=== PATIENT | female | born 1995 | race African-American/Black ===

== ENCOUNTER 2017-08-25 11:35 | Emergency (ER) | payer MEDICAID ==
[~2017-08-25] VITALS: Ht 170.2 cm; Wt 66.0 kg
[2017-08-25] MEDS ORDERED: IBUPROFEN 600MG TABLET PO ONE (15:15)
[2017-08-25 15:31] LABS: BASOPHILS % 0.8 % (0.0-2.0); EOSINOPHILS % 0.6 % (0.0-5.0); HEMATOCRIT. 36.8 % (36.0-48.0); HEMOGLOBIN. 12.3 g/dL (12.0-16.0); LYMPHOCYTES % 14.8 % (20.0-50.0); MEAN CORPUSCULAR HEMOGLOBIN 30.5 pg (28.0-32.0); MEAN CORPUSCULAR VOLUME 91.1 fL (81.0-99.0); MEAN PLATELET VOLUME 8.4 fl (7.4-10.4); MONOCYTES % 7.8 % (2.0-8.0); PLATELET 220 x1000/uL (130-400); RED BLOOD CELL COUNT 4.04 mill/uL (4.2-5.4); RED CELL DISTRIBUTION WIDTH 13.8 % (11.6-14.6)
[2017-08-25 16:19] LABS: CLARITY URINE CLOUDY (CLEAR); COLOR URINE YELLOW (YELLOW); KETONES URINE TRACE (NEGATIVE); LEUKOCYTE ESTERASE URINE TRACE (NEGATIVE); NITRITE URINE NEGATIVE (NEGATIVE); OCCULT BLOOD URINE 3+ (NEGATIVE); PH URINE >=9.0 (4.5-8.0); PROTEIN URINE 1+ (NEGATIVE); SPECIFIC GRAVITY URINE 1.032 (1.005-1.030)
[2017-08-25 17:09] VITALS: BP 116/63
== END 2017-08-25 17:11 | disposition home or self-care (01) ==
LOC: ER 13:30
DX: N93.8 Other specified abnormal uterine and vaginal bleeding (principal); R10.9 Unspecified abdominal pain
CPT/HCPCS: 36415; 76830; 76856; 81003; 81025; 85025; 99285; Z7610

== ENCOUNTER 2020-09-08 06:10 | Emergency (ER) | payer MEDICAID, OTHER ==
[~2020-09-08] VITALS: Ht 167.6 cm; Wt 91.0 kg
[2020-09-08] MEDS ORDERED: ONDANSETRON HCL 4MG/2ML INJ IV STA (06:31)
[2020-09-08] MEDS ORDERED: SODIUM CHLORIDE 0.9% 1,000 ML IV ONE (06:45)
[2020-09-08 08:09] LABS: BASOPHILS % 0.3 % (0.0-2.0); EOSINOPHILS % 0.6 % (0.0-5.0); HEMATOCRIT. 39.5 % (36.0-48.0); LYMPHOCYTES % 9.6 % (20.0-50.0); MEAN CORPUSCULAR HEMOGLOBIN 30.5 pg (28.0-32.0); MEAN CORPUSCULAR VOLUME 92.6 fL (81.0-99.0); MEAN PLATELET VOLUME 9.7 fl (7.4-10.4); MONOCYTES % 4.4 % (2.0-8.0); NEUTROPHILS % 85.1 % (40.0-76.0); PLATELET 205 x1000/uL (130-400); RED BLOOD CELL COUNT 4.26 mill/uL (4.2-5.4); RED CELL DISTRIBUTION WIDTH 14.5 % (11.6-14.6)
[2020-09-08] MEDS ORDERED: KETOROLAC 15MG/ML VIAL IV ONE (08:15)
[2020-09-08 08:16] LABS: CHLORIDE 108 mEq/L (98-107)
[2020-09-08 08:18] LABS: CLARITY URINE CLEAR (CLEAR); COLOR URINE YELLOW (YELLOW); KETONES URINE TRACE (NEGATIVE); LEUKOCYTE ESTERASE URINE 1+ (NEGATIVE); NITRITE URINE NEGATIVE (NEGATIVE); OCCULT BLOOD URINE NEGATIVE (NEGATIVE); PH URINE 6.5 (4.5-8.0); PROTEIN URINE 1+ (NEGATIVE); SPECIFIC GRAVITY URINE 1.035 (1.005-1.030)
[2020-09-08 08:20] LABS: INR 1.1; PROTHROMBIN TIME 11.3 sec (9.6-11.0)
[2020-09-08 08:34] LABS: HCG SCREEN NEGATIVE
[2020-09-08] MEDS ORDERED: AMOX-494 MT (10:25)
[2020-09-08] MEDS ORDERED: OMEP40CA12 MT (10:26)
[2020-09-08] MEDS ORDERED: ONDA4TAB5 MT (10:27)
[2020-09-08 10:30] VITALS: BP 115/62
== END 2020-09-08 10:57 | disposition home or self-care (01) ==
LOC: ER 06:10
DX: N30.90 Cystitis, unspecified without hematuria (principal); Z79.899 Other long term (current) drug therapy
CPT/HCPCS: 36415; 74176; 80053; 81003; 81025; 83690; 84703; 85025; 85610; 93005; 96361; 96374; 96375; 99285; J1885; J2405; J7030; Z7610

== ENCOUNTER 2021-01-04 02:03 | Emergency (ER) | payer MEDICAID, OTHER ==
[~2021-01-04] VITALS: Ht 175.3 cm; Wt 84.0 kg
[~2021-01-04 02:03] MED LIST: AMOX-494 MT; OMEP40CA12 MT; ONDA4TAB5 MT
[2021-01-04] MEDS ORDERED: PREDNISONE 20MG TABLET PO STA (02:18)
[2021-01-04] MEDS ORDERED: ALBUTEROL (0.083%) 2.5MG/3ML NEB HHN STA (02:18)
[2021-01-04] MEDS ORDERED: ACETAMINOPHEN 325MG TABLET PO ONE (02:30)
[2021-01-04] MEDS ORDERED: ALBU6.7H9 INH (05:42)
[2021-01-04] MEDS ORDERED: PRE120 MT (05:44)
[2021-01-04] MEDS ORDERED: P50 MT (05:44)
[2021-01-04 05:58] VITALS: BP 132/96
== END 2021-01-04 06:11 | disposition home or self-care (01) ==
LOC: ER 02:03
DX: R06.03 Acute respiratory distress (principal); J45.901 Unspecified asthma with (acute) exacerbation; F41.9 Anxiety disorder, unspecified; Z79.899 Other long term (current) drug therapy
CPT/HCPCS: 71045; 81025; 93005; 94640; 99283; J7512; Z7610

== ENCOUNTER 2021-01-10 05:09 | Emergency (ER) | payer MEDICAID ==
[~2021-01-10] VITALS: Ht 162.6 cm; Wt 105.0 kg
[~2021-01-10 05:09] MED LIST changes: +ALBU6.7H9 INH; +P50 MT
[2021-01-10] MEDS ORDERED: ALBUTEROL (0.083%) 2.5MG/3ML NEB HHN STA ×2 (05:22→06:14)
[2021-01-10] MEDS ORDERED: IPRATROPIUM BROMIDE (0.02%) 0.5MG/2.5ML NEB HHN STA (05:22)
[2021-01-10] MEDS ORDERED: PREDNISONE 20MG TABLET PO STA (05:22)
[2021-01-10] MEDS ORDERED: P50 PO (07:57)
[2021-01-10] MEDS ORDERED: ALBU90AE INH (07:57)
[2021-01-10 08:05] VITALS: BP 146/90
== END 2021-01-10 08:07 | disposition home or self-care (01) ==
LOC: ER 05:09
DX: J45.901 Unspecified asthma with (acute) exacerbation (principal)
CPT/HCPCS: 94640; 99284; J7512; Z7610